=== PATIENT | male | born 1990 | race Caucasian/White ===

== ENCOUNTER 2016-09-14 16:30 | Emergency (ER) | payer SELFPAY ==
[2016-09-14 16:30] VITALS: BMI 44.4
[2016-09-14 16:50] VITALS: BP 141/83; PULSE 84; RESP 20; TEMP 98.9; O2SAT 98
--- NOTE | 2016-09-14 18:01 | C.PDOC ---
History Of Present Illness 25 year old patient presents to the ED complaining of having 5 nose bleeds in the past week. Patient notes he had one daily. He reports they start when he bends forward and faces downward. Patient denies any nasal trauma, bleeding for the past 2 days, fever, or pain. Time Seen by Provider: 09/14/16 17:35 Chief Complaint (Nursing): ENT Problem History Per: Patient History/Exam Limitations: None Onset/Duration Of Symptoms: Other (1 week) Current Symptoms Are (Timing): Still Present Symptoms Have Been: Episodic Severity: None Pain Scale Rating Of: 0 Past Medical History Reviewed: Historical Data, Nursing Documentation, Vital Signs Vital Signs: Last Vital Signs Temp 98.9 F 09/14/16 16:47 Pulse 84 09/14/16 16:47 Resp 20 09/14/16 16:47 BP 141/83 09/14/16 16:47 Pulse Ox 98 09/14/16 18:59 Family History: States: Unknown Family Hx - Social History Hx Tobacco Use: No Hx Alcohol Use: Yes (Ocassional) Hx Substance Use: No - Immunization History Hx Tetanus Toxoid Vaccination: No Hx Influenza Vaccination: No Hx Pneumococcal Vaccination: No Review Of Systems Constitutional: Negative for: Fever ENT: Positive for: Other (nose bleed). Negative for: Nose Pain, Nose Discharge , Nose Congestion Skin: Negative for: Rash Physical Exam - Physical Exam Appears: Non-toxic, No Acute Distress Skin: Warm, Dry Head: Atraumatic, Normacephalic Eye(s): bilateral: Normal Inspection, PERRL, EOMI Nose: Normal, No Epistaxis, No Deformity, No Tenderness, No Septal Hematoma, No Other (active bleeding) Oral Mucosa: Moist Tongue: Normal Appearing Lips: Normal Appearing Teeth: Normal Dentition Throat: Normal, No Erythema, No Exudate Neck: Normal ROM, Supple ED Course And Treatment O2 Sat by Pulse Oximetry: 98 (room air) Pulse Ox Interpretation: Normal Disposition Counseled Patient/Family Regarding: Diagnosis, Need For Followup - Disposition Referrals: [facility] [Outside] [facility] [Outside] Disposition: HOME/ ROUTINE Disposition Time: 18:01 Condition: STABLE Additional Instructions: Seguimiento en la clnica mdica - llame para saul li. Mantenga un registro de cuando bentley nariz sangra. Si la nariz sangra, doble ligeramente la greg hacia dorita y pellizque firmemente la nariz mary 5-10 minutos. El sangrado debe parar despus de esto; Si sigue sangrando, pellizque de nuevo mary otros 10 minutos. Reponer a ER si el sangrado persiste despus de eso. Instructions: Nosebleed (ED) Forms: Work Excuse Print Language: FRENCH - Clinical Impression Clinical Impression: Frequent epistaxis - PA / [employer] / Resident Statement MD/DO has reviewed & agrees with the documentation as recorded. - Scribe Statement The provider has reviewed the documentation as recorded by the Scribe Laura Loredo All medical record entries made by the Scribe were at my direction and personally dictated by me. I have reviewed the chart and agree that the record accurately reflects my personal performance of the history, physical exam, medical decision making, and the department course for this patient. I have also personally directed, reviewed, and agree with the discharge instructions and disposition.
== END 2016-09-14 18:15 | disposition home or self-care (01) ==
LOC: C.ER 16:30
DX: R04.0 Epistaxis (principal)